=== PATIENT | female | born 1940 | race Caucasian/White ===

== ENCOUNTER → 2021-02-27 | Outpatient (CLI) | payer BC ==
[~2021-02-27] MED LIST: ALTACE10 MG PO; AMARYL2 MG PO; ASPIRIN EC81 MG PO; CEFUROXIME500 MG PO; GLUCOPHAGE1000 MG PO; LOPRESSOR 25 MG25 MG PO; LOPRESSOR50 MG PO; OXYBUTYNIN CHLOR5 MG PO; PLAVIX75 MG PO; PRILOSEC OTC20 MG PO; SIMVASTATIN40 MG PO
== END ==
LOC: US 13:26
DX: N17.9 Acute kidney failure, unspecified (principal)